=== PATIENT | male | born 1960 | race Caucasian/White ===

== ENCOUNTER 2023-08-28 17:38 | Emergency (ER) | payer MEDICAID ==
[~2023-08-28] VITALS: Ht 177.8 cm; Wt 72.0 kg
[~2023-08-28 17:38] MED LIST: etomidate 2mg/ml inj. ONE; rocuronium 10mg/ml inj IV ONE
[2023-08-28] MEDS ORDERED: normal saline 1000ML IV soln IV ONE (18:45)
[2023-08-28] MEDS ORDERED: rocuronium 10mg/ml inj IV ONE (19:00)
[2023-08-28] MEDS ORDERED: etomidate 2mg/ml inj. IV ONE (19:00)
[2023-08-28] MEDS ORDERED: propofol 1000mg/100ml bottle 100 ML IV ONE ×2 (19:04→23:47)
[2023-08-28 19:22] LABS: BASOPHILS % (AUTO) 0.1 % (0-1); EOSINOPHILS % (AUTO) 0 % (0-6); HEMATOCRIT 55.1 % (42.0-52.0); LYMPHOCYTES # (AUTO) 0.7 X10'3 (1.1-4.8); LYMPHOCYTES % (AUTO) 2.4 % (21-51); MEAN CORPUSCULAR HEMOGLOBIN 32.2 PG (27.0-31.0); MEAN CORPUSCULAR HGB CONC 34.6 g/dL (33.0-36.5); MEAN CORPUSCULAR VOLUME 92.9 FL (78-98); MEAN PLATELET VOLUME 7.5 FL (7.4-10.4); MONOCYTES # (AUTO) 2.9 X10'3 (0-0.9); MONOCYTES % (AUTO) 9.8 % (2-12); NEUTROPHILS # (AUTO) 25.8 X10'3 (1.8-7.7); NEUTROPHILS % (AUTO) 87.7 % (42-75); PLATELET COUNT 283 X10'3 (140-440); RED BLOOD COUNT 5.93 X10'6 (4.70-6.10); RED CELL DISTRIBUTION WIDTH 13.9 % (11.5-14.5)
[2023-08-28 19:24] VITALS: BP_SYST 140; BP_SYST 220; BP_DIAS 120; BP_DIAS 90; PULSE 119; RESP 16; O2SAT 96
[2023-08-28 19:29] LABS: ALANINE AMINOTRANSFERASE 45 U/L (12-78); ALBUMIN 3.6 G/DL (3.4-5.0); ALBUMIN/GLOBULIN RATIO 0.8 (1.1-1.5); ALKALINE PHOSPHATASE 152 IU/L (46-116); ANION GAP 12 (8-16); ASPARTATE AMINO TRANSFERASE 82 U/L (10-37); BILIRUBIN,TOTAL 3.2 MG/DL (0.1-1.0); BLOOD UREA NITROGEN 42 MG/DL (7-18); BUN/CREATININE RATIO 37.2 (10.0-20.0); CALCIUM 10.5 MG/DL (8.5-10.1); CHLORIDE 108 MMOL/L (99-107); CREATININE 1.13 MG/DL (0.60-1.10); GLUCOSE 133 MG/DL (70-104); SODIUM 147 MMOL/L (135-145); TOTAL CARBON DIOXIDE 27.4 MMOL/L (24-32); TOTAL PROTEIN 8.2 G/DL (6.4-8.2); eCRCL 67 ML/MIN; eGFR 65 ML/MIN
[2023-08-28 19:33] LABS: POTASSIUM 3.9 MMOL/L (3.5-5.1)
[2023-08-28 19:35] LABS: MAGNESIUM 2.2 MG/DL (1.5-2.4)
[2023-08-28] MEDS ORDERED: FENTANYL-0.9 % NACL/PF 100 ML IV PRN (19:35)
[2023-08-28 19:36] LABS: LACTIC SEPSIS 3.4 MMOL/L (0.4-2.0)
[2023-08-28 19:37] LABS: ETHANOL < 10 MG/DL (<10)
[2023-08-28 19:40] LABS: WHITE BLOOD COUNT 29.4 X10'3 (4.5-11.0)
[2023-08-28 19:41] LABS: HEMOGLOBIN 19.1 g/dl (14.0-17.9)
[2023-08-28 19:48] LABS: ABG HCO3 26.2 mmol/L (22.0-26.0); ABG OXYGEN SATURATION 86.7 % (94-97); ABG PCO2 (T) 45.2 mmHg (35.0-48.0); ABG PH (T) 7.385 (7.340-7.440); ABG PO2 (T) 57.3 mmHg (75.0-100.0); ALLEN'S TEST POSITIVE; FCOHb 0.3 % (0.0-3.9); FHHb 13.2 % (0.0-5.0); FMetHb 0.3 % (0.0-1.5); FO2Hb 86.2 % (94-97); MODE PRVC; PATIENT TEMPERATURE 37.9; RESPIRATORY RATE 16 b/min; TIDAL VOLUME 475 mL; TOTAL HEMOGLOBIN 18.9 G/dl (14.0-17.9)
[2023-08-28] MEDS ORDERED: vancomycin/NS 1 GM ADD-VANTAGE 250 ML X 1 DOSE IV ONE (20:05)
[2023-08-28] MEDS ORDERED: piperacillin/tazo 3.375gm/50ml 50 ML IV ONE (20:05)
[2023-08-28 20:32] VITALS: BP 142/94; PULSE 116; RESP 22; O2SAT 96
[2023-08-28 20:53] LABS: PLATELET ESTIMATE NORMAL; TOTAL CELLS COUNTED 100
[2023-08-28 20:57] LABS: ELLIPTOCYTES 2+; POIKILOCYTOSIS 1+; TEAR DROP CELLS FEW
[2023-08-28] MEDS ORDERED: acetaminophen 1,000mg/100ml IV 100 ML IV ONE (21:20)
[2023-08-28] MEDS ORDERED: albuterol 60 PUFF/8GM Inhaler (90mcg/1 puff) IH PRN (21:40)
[2023-08-28 22:06] LABS: BILIRUBIN,URINE NEGATIVE (Neg); CLARITY,URINE CLEAR (Clear); COLOR,URINE AMBER (Yellow); GLUCOSE, URINE NEGATIVE (Neg); KETONES,URINE NEGATIVE (Neg); LEUKOCYTE ESTERASE ,URINE NEGATIVE (Neg); NITRITES, URINE NEGATIVE (Neg); OCCULT BLOOD,URINE TRACE-INTACT (Neg); PROTEIN,URINE TRACE mg/dl (Neg)
[2023-08-28 22:19] LABS: FIBRINOGEN 471 MG/DL (177-424); INR 1.1 INR; PROTHROMBIN TIME 11.9 SECONDS (9.0-12.0)
[2023-08-28 22:21] LABS: UA COLLECTION TYPE OTHER
[2023-08-28 22:22] LABS: MUCUS STRANDS FEW /LPF (Neg); SQUAMOUS EPITHELIAL CELL,UR NONE SEEN /LPF (FEW)
[2023-08-28 22:23] LABS: BACTERIA,URINE 1+ /HPF (Neg); RBC,URINE 0-2 /HPF (0-2); RENAL CELLS, URINE FEW /HPF; TRANSITIONAL EPI CELLS,URINE FEW /HPF; WBC,URINE 0-4 /HPF (0-4)
[2023-08-28 22:32] LABS: URINE AMPHETAMINE SCREEN POSITIVE (Neg); URINE BARBITUATE SCREEN NEGATIVE (Neg); URINE BENZODIAZEPINES SCREEN NEGATIVE (Neg); URINE CANNABINOID SCREEN NEGATIVE (Neg); URINE COCAINE SCREEN NEGATIVE (Neg); URINE METHADONE SCREEN NEGATIVE (Neg); URINE OPIATE SCREEN NEGATIVE (Neg); URINE PHENCYCLIDINE SCREEN NEGATIVE (Neg)
[2023-08-28 22:52] VITALS: TEMP 100.5; O2SAT 97
[2023-08-28 23:36] VITALS: BP 124/77; PULSE 97; RESP 16
[2023-08-29 00:10] VITALS: BP 134/80; PULSE 89; RESP 18
== END 2023-08-29 00:05 | disposition short-term general hospital (02) ==
LOC: EDBD 17:40 → ER 17:40
DX: A41.89 Other specified sepsis (principal); I62.9 Nontraumatic intracranial hemorrhage, unspecified; N17.9 Acute kidney failure, unspecified; E87.20 Acidosis, unspecified; R79.89 Other specified abnormal findings of blood chemistry; E86.0 Dehydration; Z20.822 Contact with and (suspected) exposure to COVID-19
CPT/HCPCS: 31500; 36415; 36600; 70450; 71045; 74176; 80053; 80305; 80320; 81001; 82140; 82803; 83605; 83735; 84145; 84484; 85007; 85018; 85025; 85384; 85610; 87040; 87070; 87077; 87185; 87186; 87811; 93005; 96361; 96365; 96366; 96368; 99291; 99292; J0131; J2543; J2704; J3010; J3370; J3490; J7030; 94002; 94760